=== PATIENT | male | born 2000 | race African-American/Black ===

== ENCOUNTER 2018-11-29 08:59 | Emergency (ER) | payer SELFPAY ==
[2018-11-29 09:10] VITALS: BP 116/71; PULSE 89; TEMP 98.4; BMI 40.3
--- NOTE | 2018-11-29 09:15 | PDOC ---
History of Present Illness - General Chief Complaint: Pain Stated Complaint: VOMITING/ ABD PAIN Time Seen by Provider: 11/29/18 09:13 History Source: Patient - History of Present Illness Timing/Duration: reports: other (this am) Past History - Past Medical History Allergies/Adverse Reactions: Allergies Allergy/AdvReac Type Severity Reaction Status Date / Time amoxicillin Allergy Verified 11/29/18 09:11 Home Medications: Ambulatory Orders Ondansetron HCl [Zofran] 4 mg PO Q8H #15 tablet 11/29/18 COPD: No - Immunization History Immunization Up to Date: Yes - Suicide/Smoking/Psychosocial Hx Smoking Status: No Smoking History: Never smoked Number of Cigarettes Smoked Daily: 0 Information on smoking cessation initiated: No Hx Alcohol Use: No Drug/Substance Use Hx: No Substance Use Type: None Review of Systems - Review of Systems Constitutional: No: Chills, Fever ABD/GI: Yes: Nausea, Vomiting, Abdominal cramping. No: Diarrhea : No: Dysuria, Flank Pain, Hematuria *Physical Exam - Vital Signs Last Vital Signs Temp Pulse Resp BP Pulse Ox 98.4 F 89 18 116/71 99 11/29/18 09:07 11/29/18 09:07 11/29/18 09:07 11/29/18 09:07 11/29/18 09:07 - Physical Exam General Appearance: Yes: Appropriately Dressed. No: Apparent Distress HEENT: positive: Normal Voice Neck: positive: Supple Respiratory/Chest: negative: Respiratory Distress Gastrointestinal/Abdominal: positive: Normal Bowel Sounds, Tender (to periumbilicus, NT over mcburneys or RUQ), Soft. negative: Distended, Guarding, Rebound Musculoskeletal: negative: CVA Tenderness Integumentary: positive: Dry, Warm Neurologic: positive: Fully Oriented, Alert, Normal Mood/Affect Moderate Sedation - Procedure Monitoring Vital Signs: Procedure Monitoring Vital Signs Temperature 98.4 F 11/29/18 09:07 Pulse Rate 89 11/29/18 09:07 Respiratory Rate 18 11/29/18 09:07 Blood Pressure 116/71 11/29/18 09:07 O2 Sat by Pulse Oximetry (%) 99 11/29/18 09:07 ED Treatment Course - LABORATORY CBC & Chemistry Diagram: 11/29/18 09:25 11/29/18 09:25 Medical Decision Making - Medical Decision Making 11/29/18 09:13 18 yo M, no sig hx, p/w abd pain w/ n/v. Pt states he was in [facility] until this am when he awoke w/ sekou-umbilical pain and > 10 e/o NB, NB n/v. No diarrhea, f/c. Feels weak now per pt. Pt states he ate spinach last night that his grandmother cooked and that grandmother has since told him that spinach "might have been old ". However, no one else who ate spinach has symptoms per patient See exam Possible gastroenteritis vs gastritis, less likely appy Stable w/ minimal ttp to periumbilicus -pain control -zofran -IVF -labs -reassess 11/29/18 11:57 Labs unremarkable. RUQ ultrasound read as borderline thickening of gallbladder wall thickening to 3 mm with no stones, pericholecystic fluid or intra/ extrahepatic ductal dilatation. On exam, pt had no ttp over RUQ. Acute sylvie very unlikely at this time. On reassessment, pain has since resolved and patient was able to tolerate po here. Will dc with supportive treatment and strict return precautions *DC/Admit/Observation/Transfer Diagnosis at time of Disposition: Nausea and vomiting Qualifiers: Vomiting type: unspecified Vomiting Intractability: non-intractable Qualified Code(s): R11.2 - Nausea with vomiting, unspecified - Discharge Dispostion Disposition: HOME Condition at time of disposition: Improved - Prescriptions Prescriptions: Ondansetron HCl [Zofran] 4 mg PO Q8H #15 tablet - Referrals - Patient Instructions Additional Instructions: Your labs and ultrasound were unremarkable. The source of your symptoms might be viral. Rest, drink plenty of fluids and take zofran as needed for nausea. If symptoms persist and/or worsen, return to the ER - Post Discharge Activity
[2018-11-29] MEDS ORDERED: SODIUM CHLORIDE 1,000 ML IV STA (09:16)
[2018-11-29] MEDS ORDERED: ONDANSETRON 4 MG/2 ML VIAL IVPUSH ONE (09:16)
[2018-11-29] MEDS ORDERED: KETOROLAC TROMETHAMINE 30 MG/1 ML VIAL IVPUSH ONE (09:26)
[2018-11-29] MEDS ORDERED: ONDANSETRON 4 MG/2 ML VIAL ONE (09:30)
[2018-11-29] MEDS ORDERED: KETOROLAC TROMETHAMINE 30 MG/1 ML VIAL ONE (09:30)
[2018-11-29 09:35] LABS: BASO % 0.2 % (0-2.0); EOS % 0.9 % (0-4.5); HEMATOCRIT 50.5 % (35.4-49); HEMOGLOBIN 17.4 GM/dL (11.7-16.9); LYMPH % 3.1 % (8-40); MCH 31.2 pg (25.7-33.7); MCHC 34.4 g/dl (32.0-35.9); MEAN CELL VOLUME 90.6 fl (80-96); MEAN PLT VOLUME 7.5 fl (7.5-11.1); MONO % 7.9 % (3.8-10.2); NEUT % 87.9 % (42.8-82.8); PLATELET COUNT 329 K/MM3 (134-434); RBC 5.58 M/mm3 (4.00-5.60); RDW 13.2 % (11.9-15.9); WHITE BLOOD COUNT 11.2 K/mm3 (4.0-10.0)
[2018-11-29 10:15] LABS: ALBUMIN 4.4 g/dl (3.4-5.0); ALK PHOS 86 U/L (45-117); ANION GAP 5 MMOL/L (8-16); BILIRUBIN,TOTAL 0.4 mg/dL (0.2-1); BLOOD UREA NITROGEN 14 mg/dL (7-18); CALCIUM 9.9 mg/dL (8.5-10.1); CHLORIDE 103 mmol/L (98-107); CO2 32 mmol/L (21-32); GLUCOSE,RANDOM 119 mg/dL (74-106); LIPASE 102 U/L (73-393); POTASSIUM 4.5 mmol/L (3.5-5.1); SGOT/AST 56 U/L (15-37); SGPT/ALT 83 U/L (13-61); SODIUM 140 mmol/L (136-145); TOT PROT 8.6 g/dl (6.4-8.2)
[2018-11-29 10:21] LABS: URINE APPEARANCE CLOUDY; URINE BILIRUBIN NEGATIVE (<2.0 mg/dL); URINE GLUCOSE (UA) NEGATIVE (NEGATIVE); URINE KETONE TRACE (NEGATIVE); URINE LEUK ESTERASE NEGATIVE (NEGATIVE); URINE NITRITE NEGATIVE (NEGATIVE); URINE PROTEIN 1+ (NEGATIVE)
[2018-11-29 10:23] LABS: URINE COLOR DK YELLOW
[2018-11-29 10:43] LABS: URINE HYALINE CAST 4 /lpf; URINE MUCUS MANY
== END 2018-11-29 12:20 | disposition home or self-care (01) ==
LOC: JER 08:59
PROC: 3E0333Z Introduction of Anti-inflammatory into Peripheral Vein, Percutaneous Approach (ICD-10-PCS; principal; 2018-11-29)
PROC: 3E033GC Introduction of Other Therapeutic Substance into Peripheral Vein, Percutaneous Approach (ICD-10-PCS; 2018-11-29)
PROC: 3E0337Z Introduction of Electrolytic and Water Balance Substance into Peripheral Vein, Percutaneous Approach (ICD-10-PCS; 2018-11-29)
DX: R11.2 Nausea with vomiting, unspecified (principal)
CPT/HCPCS: 36415; 76705-TC; 80053; 81003; 81015; 83690; 85025; 99283-25; J7030